=== PATIENT | female | born 1960 | race Caucasian/White ===

== ENCOUNTER 2018-05-25 18:30 | Emergency (ER) | payer MEDICAID, OTHER ==
[2018-05-25] MEDS ORDERED: IPRATROPIUM/ALBUTEROL 3 ML NEB INH STA (18:39)
--- NOTE | 2018-05-25 18:41 | ED Physician Documentation ---
PD HPI DYSPNEA - Stated complaint Stated Complaint: SOA/VOMITING - Chief complaint Chief Complaint: Resp - History obtained from History obtained from: Patient - History of Present Illness Timing - onset: Yesterday (She became sick yesterday with sneezing which quickly moved down to her chest with a cough productive of clear sputum and wheezing. She has no history of heart or lung disease. She does have central anterior chest pain especially with deep breathing. She is short of breath. She has no history of tobacco use. No pedal edema or calf pain or recent travel.) Review of Systems Ten Systems: 10 systems reviewed and negative Constitutional: denies: Fever, Chills Cardiac: reports: Chest pain / pressure. denies: Palpitations Respiratory: reports: Dyspnea, Cough GI: denies: Abdominal Pain : denies: Dysuria, Frequency PD PAST MEDICAL HISTORY - Present Medications Home Medications: Ambulatory Orders Medication Instructions Recorded Confirmed Albuterol Sulf [Ventolin Hfa 1 - 2 puffs INH Q4HR PRN #1 inhaler 05/25/18 Inhaler] Hydrocodone/Chlorphen P-Stirex 5 ml PO BID PRN #90 ml 05/25/18 [Hydrocodone-Chlorphen ER Susp] predniSONE [Deltasone] 60 mg PO DAILY 5 Days tablet 05/25/18 - Allergies Allergies/Adverse Reactions: Allergies Allergy/AdvReac Type Severity Reaction Status Date / Time No Known Drug Allergies Allergy Verified 05/25/18 18:39 PD ED PE NORMAL - Vitals Vital signs reviewed: Yes - General General: Alert and oriented X 3, Other (She is breathless and has a hoarse voice consistent with laryngitis) - HEENT HEENT: PERRL, EOMI, Pharynx benign - Neck Neck: Supple, no meningeal sign, No bony TTP - Cardiac Cardiac: RRR (But tachycardic). No: No murmur - Respiratory Respiratory: Other (Slightly labored breathing but speaking in full sentences. Tight and wheezy throughout.) - Abdomen Abdomen: Soft, Non tender - Back Back: No CVA TTP, No spinal TTP - Derm Derm: Normal color, Warm and dry - Extremities Extremities: No edema, No calf tenderness / cord - Neuro Neuro: Alert and oriented X 3, Normal speech Results - Vitals Vitals: Vital Signs - 24 hr 05/25/18 05/25/18 05/25/18 18:36 18:50 19:17 Temperature 36.9 C Heart Rate 125 H 119 H 91 Respiratory 22 14 20 Rate Blood Pressure 177/87 H 135/57 H O2 Saturation 97 99 Oxygen O2 Source Room air - EKG (time done) 1846 Rate: Rate (enter#) (107) Rhythm: Sinus tachycardia [place]: Normal Intervals: Normal [place] QRS: Normal Ischemia: Non specific changes Computer interpretation: Agree with computer - Labs Labs: Laboratory Tests 05/25/18 05/25/18 05/25/18 18:50 18:50 18:50 WBC 9.2 RBC 4.75 Hgb 14.2 Hct 41.8 MCV 88.0 MCH 30.0 MCHC 34.0 RDW 13.0 Plt Count 309 MPV 8.8 Neut # (Auto) 6.9 H Lymph # (Auto) 1.2 L [place] # (Auto) 0.9 Eos # (Auto) 0.2 Baso # (Auto) 0.1 Absolute Nucleated RBC 0.00 Nucleated RBC % 0.0 D-Dimer Sodium 139 Potassium 4.0 Chloride 104 Carbon Dioxide 25 Anion Gap 10.0 BUN 19 Creatinine 0.8 Estimated GFR (MDRD) 74 L Glucose 107 H Calcium 9.2 Total Bilirubin 0.4 AST 22 ALT 21 Alkaline Phosphatase 89 Troponin I < 0.04 Total Protein 7.1 Albumin 4.2 Globulin 2.9 Albumin/Globulin Ratio 1.4 Lipase 33 05/25/18 18:50 WBC RBC Hgb Hct MCV MCH MCHC RDW Plt Count MPV Neut # (Auto) Lymph # (Auto) [place] # (Auto) Eos # (Auto) Baso # (Auto) Absolute Nucleated RBC Nucleated RBC % D-Dimer < 200.0 L Sodium Potassium Chloride Carbon Dioxide Anion Gap BUN Creatinine Estimated GFR (MDRD) Glucose Calcium Total Bilirubin AST ALT Alkaline Phosphatase Troponin I Total Protein Albumin Globulin Albumin/Globulin Ratio Lipase - Rads (name of study) 2v chest Radiology: EMP read contemporaneously (normal) PD MEDICAL DECISION MAKING - ED course ED course: This is a 57-year-old woman who presents with wheezing and shortness of breath that followed an upper respiratory infection yesterday. She felt much better after breathing treatment here. Her EKG, chest x-ray, d-dimer, troponin and other diagnostics are reassuring for no serious etiology and she is treated for bronchitis with steroids, albuterol, and cough medicine. Departure - Departure Disposition: Home, Self Care Clinical Impression: Bronchitis Dyspnea Qualifiers: Dyspnea type: shortness of breath Qualified Code(s): R06.02 - Shortness of breath Condition: Good Record reviewed to determine appropriate education?: Yes Instructions: ED Bronchitis Asthmatic Prescriptions: Albuterol Sulf [Ventolin Hfa Inhaler] 1 - 2 puffs INH Q4HR PRN #1 inhaler PRN Reason: Shortness Of Air/Wheezing Hydrocodone/Chlorphen P-Stirex [Hydrocodone-Chlorphen ER Susp] 5 ml PO BID PRN #90 ml PRN Reason: Cough predniSONE [Deltasone] 60 mg PO DAILY 5 Days tablet Comments: Call your doctor to arrange a follow-up appointment, make the next available appointment. In the interim, return anytime if worse or if new symptoms develop. Your blood pressure was elevated today on check into the emergency department. This does not mean that you have hypertension, it is a common phenomenon to come to the emergency department and have elevated blood pressure. I recommend that you see your primary care physician within the week to have it rechecked when you are feeling better.
[2018-05-25 19:07] LABS: BASOPHILS # (AUTO) 0.1 10^3/uL (0.0-0.1); BASOPHILS % (AUTO) 0.7 %; EOSINOPHILS # (AUTO) 0.2 10^3/uL (0.0-0.7); HGB - HEMOGLOBIN 14.2 g/dL (12.0-16.0); LYMPHOCYTES # (AUTO) 1.2 10^3/uL (1.5-3.5); LYMPHOCYTES % (AUTO) 12.7 %; MEAN PLATELET VOLUME 8.8 fL (7.9-10.8); MONOCYTES # (AUTO) 0.9 10^3/uL (0.0-1.0); MONOCYTES % (AUTO) 9.5 %; NEUTROPHILS # (AUTO) 6.9 10^3/uL (1.5-6.6); NEUTROPHILS % (AUTO) 75.1 %; PLT - PLATELET COUNT 309 10^3/uL (130-450); RED BLOOD COUNT 4.75 10^6/uL (4.20-5.40); WHITE BLOOD COUNT 9.2 x10^3/uL (4.8-10.8)
[2018-05-25 19:24] LABS: ALBUMIN 4.2 g/dL (3.2-5.5); ALBUMIN/GLOBULIN RATIO 1.4 (1.0-2.2); BILIRUBIN,TOTAL 0.4 mg/dL (0.2-1.0); CALCIUM 9.2 mg/dL (8.5-10.3); CREATININE 0.8 mg/dL (0.4-1.0); TOTAL PROTEIN 7.1 g/dL (6.7-8.2)
--- NOTE | 2018-05-25 20:04 | XRAY Report ---
Reason: dyspnea cough Procedure Date: 05/25/2018 Accession Number: [id number] / [id number] Procedure: XR - Chest 2 View X-Ray CPT Code: 54121 FULL RESULT: EXAM: CHEST RADIOGRAPHY EXAM DATE: 05/25/2018 07:27 PM. CLINICAL HISTORY: Dyspnea and cough COMPARISON: None. TECHNIQUE: 2 views. FINDINGS: Lungs/Pleura: No focal opacities evident. No pleural effusion. No pneumothorax. Normal volumes. Mediastinum: Heart and mediastinal contours are unremarkable. Other: None. IMPRESSION: Negative for an acute cardiopulmonary abnormality. RADIA
[2018-05-25] MEDS ORDERED: predniSONE 20 MG TABLET PO STA (20:09)
[2018-05-25] MEDS ORDERED: ALBUTEROL NEB 2.5 MG/3 ML INH STA (20:09)
[2018-05-25] MEDS ORDERED: guaiFENesin/CODEINE 5 ML UDC PO STA (20:09)
[2018-05-25 20:21] VITALS: BP 144/76
== END 2018-05-25 20:35 | disposition home or self-care (01) ==
LOC: ED 18:30
DX: J40 Bronchitis, not specified as acute or chronic (principal); R03.0 Elevated blood-pressure reading, without diagnosis of hypertension
CPT/HCPCS: 36415; 71046; 80053; 83690; 84484; 85025; 85379; 93005; 94640; 99283; A9270; J7512

== ENCOUNTER 2018-09-17 08:24 | Emergency (ER) | payer OTHER ==
--- NOTE | 2018-09-17 09:41 | ED Physician Documentation ---
PD HPI LOWER EXT INJURY - Stated complaint Stated Complaint: BILAT FOOT PX AND SWELLING - Chief complaint Chief Complaint: Ext Problem - History obtained from History obtained from: Patient, Family - History of Present Illness PD HPI LOW EXT INJURY LOCATION: Right, Foot Type of injury: Other (wearing ill fitting shoes) Where injury occurred: Home, Work Timing - onset: How many weeks ago (1) Timing - duration: Weeks (1) Timing - details: Abrupt onset, Still present Improved by: Rest, Immobilization Worsened by: Moving, Palpating Associated symptoms: Swelling, Discolored Contributing factors: No: Anticoagulated Similar symptoms before: Has not had sx before Recently seen: Not recently seen - Additional information Additional information: Previously well 57-year-old female bought some new boots and wore them to work and she found that they were extremely uncomfortable. She wore them several times and when she took them off 5 days ago she noted there was some swelling to her right foot. She had pain up the calf on both sides. She did not have any swelling to the left foot. She is now been wearing her normal shoes for the past 5 days and despite this she has persistent swelling to the right foot with some redness over the dorsum of it and some tenderness to the foot. Review of Systems Constitutional: denies: Fever Eyes: denies: Decreased vision Ears: denies: Ear pain Nose: denies: Rhinorrhea / runny nose, Congestion Throat: denies: Sore throat Respiratory: denies: Cough GI: reports: Nausea. denies: Vomiting : denies: Dysuria, Frequency Skin: denies: Rash Musculoskeletal: reports: Extremity pain, Extremity swelling, Pain with weight bearing. 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 - Present Medications Home Medications: Ambulatory Orders Medication Instructions Recorded Confirmed Amox/Clav 875/125 [Augmentin] 1 each PO Q12H #20 tablet 09/17/18 Hydrocodone/Acetaminophen 1 - 2 each PO Q6H PRN #14 tablet 09/17/18 [Hydrocodon-Acetaminophen 5-325] - Allergies Allergies/Adverse Reactions: Allergies Allergy/AdvReac Type Severity Reaction Status Date / Time No Known Drug Allergies Allergy Verified 09/17/18 08:48 - Social History Does the pt smoke?: No Smoking Status: Never smoker Does the pt drink ETOH?: No Does the pt have substance abuse?: No Substance Use and Type: Marijuana - Immunizations Immunizations are current?: No - POLST Patient has POLST: No PD ED PE NORMAL - Vitals Vital signs reviewed: Yes (normal ) - General General: Alert and oriented X 3, No acute distress, Well developed/nourished - HEENT HEENT: Atraumatic, PERRL, EOMI - Neck Neck: Supple, no meningeal sign - Respiratory Respiratory: No respiratory distress - Derm Derm: Normal color, Warm and dry, No rash - Extremities Extremities: No deformity, Other (There is swelling and point tenderness to the right foot over the dorsum of the foot laterally is a portion that is swollen and erythematous with blanching skin. There is some erythema to the medial aspect of the foot as well over the ball of the foot and over the heel. There is minimal calf tenderness without palpable cord. The left foot is without swelling or tenderness.) - Neuro Neuro: Alert and oriented X 3, customer support analyst 2-12 intact, No motor deficit, No sensory deficit, Normal speech Eye Opening: Spontaneous Motor: Obeys Commands Verbal: Oriented GCS Score: 15 - Psych Psych: Normal mood, Normal affect Results - Vitals Vitals: Vital Signs - 24 hr 09/17/18 09/17/18 08:43 11:47 Temperature 36.3 C L Heart Rate 93 87 Respiratory 14 16 Rate Blood Pressure 122/57 L 142/88 H O2 Saturation 99 97 Oxygen O2 Source Room air - Rads (name of study) duplex right Radiology: Prelim report reviewed (Impression: No evidence for deep venous thrombosis.), EMP read indepedently, See rad report PD MEDICAL DECISION MAKING - ED course Complexity details: reviewed results, re-evaluated patient, considered differential, d/w patient, d/w family ED course: 57-year-old female who had been wearing some tight fitting shoes has some cellulitis to the right foot now. Duplex exam is negative for DVT. She is administered Rocephin 1 g IM and some Toradol. We will put her on some antibiotic and I have discussed with the patient antibiotic failure and reasons to return to the emergency department. Departure - Departure Disposition: 01 Home, Self Care Clinical Impression: Cellulitis Qualifiers: Site of cellulitis: extremity Site of cellulitis of extremity: lower extremity Laterality: right Qualified Code(s): L03.115 - Cellulitis of right lower limb Condition: Stable Instructions: ED Infec Skin Cellulitis Follow-Up: [facility] [Provider Group] Prescriptions: Amox/Clav 875/125 [Augmentin] 1 each PO Q12H #20 tablet Hydrocodone/Acetaminophen [Hydrocodon-Acetaminophen 5-325] 1 - 2 each PO Q6H PRN #14 tablet PRN Reason: pain Forms: Activity restrictions
[2018-09-17] MEDS ORDERED: KETOROLAC 60 MG/2 ML VIAL IM STA (10:18)
[2018-09-17] MEDS ORDERED: LIDOCAINE 1% 2 ML VIAL MC ONE (10:18)
[2018-09-17] MEDS ORDERED: cefTRIAXone 1 GM VIAL IM STA (10:18)
[2018-09-17 11:48] VITALS: BP 142/88
--- NOTE | 2018-09-17 11:49 | Ultrasound Report ---
Reason: R foot swelling calf pain Procedure Date: 09/17/2018 Accession Number: [id number] / [id number] Procedure: US - Duplex Ext Veins Right CPT Code: FULL RESULT: EXAM: RIGHT LOWER EXTREMITY VENOUS ULTRASOUND EXAM DATE: 09/17/2018 11:37 AM. CLINICAL HISTORY: R foot swelling calf pain. COMPARISON: None. TECHNIQUE: Real-time sonographic vascular imaging was performed by the printing bindery assistant through the lower extremity utilizing both color-flow and Doppler spectral analysis. Multiple education courses sales representative static images were saved for review. FINDINGS: Common Femoral Vein (CFV): Normal. CFV-GSV Junction: Normal. Profunda Femoral Vein (PFV): Normal. Femoral Vein (FV) Prox: Normal. Femoral Vein (FV) Mid: Normal. Femoral Vein (FV) Dist: Normal. Popliteal Vein: Normal. Posterior Tibial Veins: Normal. Peroneal Veins: Normal. Contralateral Side CFV: Normal. Other: None. IMPRESSION: No evidence for deep venous thrombosis. RADIA
== END 2018-09-17 12:22 | disposition home or self-care (01) ==
LOC: ED 08:24
DX: L03.115 Cellulitis of right lower limb (principal)
CPT/HCPCS: 96372; 99283

== ENCOUNTER 2018-10-05 19:55 | Emergency (ER) | payer OTHER ==
[2018-10-05] MEDS ORDERED: KETOROLAC 30 MG/ML VIAL IVP STA (20:30)
[2018-10-05 20:47] LABS: BASOPHILS # (AUTO) 0.1 10^3/uL (0.0-0.1); BASOPHILS % (AUTO) 0.9 %; EOSINOPHILS # (AUTO) 0.4 10^3/uL (0.0-0.7); HGB - HEMOGLOBIN 12.7 g/dL (12.0-16.0); LYMPHOCYTES # (AUTO) 1.1 10^3/uL (1.5-3.5); LYMPHOCYTES % (AUTO) 9.8 %; MEAN CORPUSCULAR HEMOGLOBIN 29.5 pg (27.0-31.0); MEAN CORPUSCULAR HGB CONC 34.2 g/dL (32.0-36.0); MEAN CORPUSCULAR VOLUME 86.1 fL (81.0-99.0); MEAN PLATELET VOLUME 7.6 fL (7.9-10.8); MONOCYTES # (AUTO) 0.6 10^3/uL (0.0-1.0); MONOCYTES % (AUTO) 5.5 %; NEUTROPHILS # (AUTO) 9.3 10^3/uL (1.5-6.6); NEUTROPHILS % (AUTO) 80.8 %; PLT - PLATELET COUNT 483 10^3/uL (130-450); RED BLOOD COUNT 4.31 10^6/uL (4.20-5.40); RED CELL DISTRIBUTION WIDTH 12.8 % (12.0-15.0); WHITE BLOOD COUNT 11.6 x10^3/uL (4.8-10.8)
[2018-10-05 20:49] LABS: CALCIUM 8.8 mg/dL (8.5-10.3); CREATININE 0.7 mg/dL (0.4-1.0)
[2018-10-05 21:04] LABS: BILIRUBIN,URINE NEGATIVE (NEGATIVE); GLUCOSE, URINE (UA) NEGATIVE (NEGATIVE); KETONES,URINE (UA) TRACE mg/dL (NEGATIVE); LEUKOCYTE ESTERASE, URINE MODERATE (NEGATIVE); NITRITE,URINE NEGATIVE (NEGATIVE); OCCULT BLOOD,URINE MODERATE (NEGATIVE); PROTEIN,URINE NEGATIVE (NEGATIVE); UROBILINOGEN,URINE 0.2 (NORMAL) E.U./dL (NORMAL)
[2018-10-05 21:05] LABS: CLARITY,URINE HAZY (CLEAR)
[2018-10-05 21:14] LABS: BACTERIA,URINE Rare /HPF (None Seen); SQUAMOUS EPITHELIAL CELL,UR MANY Squamous (<= Few)
[2018-10-05 21:18] LABS: RHEUMATOID FACTOR NEGATIVE (Negative)
[2018-10-05] MEDS ORDERED: methylPREDNISolone SUCCINATE 125 MG/2 ML VIAL IVP STA (22:05)
[2018-10-05 22:26] VITALS: BP 149/75
--- NOTE | 2018-10-05 22:46 | ED Physician Documentation ---
History of Present Illness - Stated complaint Stated Complaint: BODY SWELLING - Chief complaint Chief Complaint: General - History obtained from History obtained from: Patient, Family - History of Present Illness Timing: How many weeks ago (3) Pain level max: 8 Pain level now: 8 Severity Comments: moderate Quality: aching, throbbing in multiple joints Radiates to: no specific radiation Improved by: nothing Worsened by: movement Associated symptoms: swelling, redness. Denies fever. Denies chest pain, sob, nausea, vomiting, sore throat or urinary symptoms. Pt denies rash. - Treatment prior to arrival Treatment prior to arrival: Tried antibiotics 2 weeks ago and just finished them up - Augmentin was prescribed for possible cellulitis. - Additonal information Additional information: 57 y/o F was seen 2 weeks ago for swelling of her ankle and diagnosed with cellulitis. Started on antibiotics. Pt however now complains of pain and swelling spreading to multiple joints. She has swelling and redness of her L ankle, R ankle, left wrist, Bilateral elbows. She denies fever. Denies hx of travel, no recent insect bites or rashes. She denies recent viral or other illness, sore throat, urinary symptoms, vaginal discharge or bleeding. No family history of arthritis or autoimmune disease. Denies hx of IV drug use. Does occasionally use marijuana. Denies hx of chest pain, sob. Denies HIV or Hepatitis. Review of Systems Ten Systems: 10 systems reviewed and negative Constitutional: denies: Fever, Chills, Weight Loss, Sweats Cardiac: denies: Chest pain / pressure, Palpitations Respiratory: denies: Dyspnea, Cough GI: denies: Abdominal Pain, Nausea, Vomiting : denies: Dysuria, Frequency, Hesitancy, Hematuria, Discharge, Vaginal bleeding Skin: denies: Rash, Bite / sting Musculoskeletal: reports: Joint pain, Joint swelling, Pain with weight bearing. 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 - Present Medications Home Medications: Ambulatory Orders Medication Instructions Recorded Confirmed Amox/Clav 875/125 [Augmentin] 1 each PO Q12H #20 tablet 09/17/18 Hydrocodone/Acetaminophen 1 - 2 each PO Q6H PRN #14 tablet 09/17/18 [Hydrocodon-Acetaminophen 5-325] Hydrocodone/Acetaminophen 1 - 2 each PO Q6H PRN #14 tablet 10/05/18 [Hydrocodon-Acetaminophen 5-325] Ibuprofen [Motrin] 800 mg PO Q8H PRN #30 tablet 10/05/18 RX: predniSONE [Prednisone] 40 mg PO DAILY #10 tablet 10/05/18 - Allergies Allergies/Adverse Reactions: Allergies Allergy/AdvReac Type Severity Reaction Status Date / Time No Known Drug Allergies Allergy Verified 10/05/18 20:02 - Social History Does the pt smoke?: No Smoking Status: Never smoker Does the pt drink ETOH?: No Does the pt have substance abuse?: No - Immunizations Immunizations are current?: No - POLST Patient has POLST: No PD ED PE EXPANDED - General General: Alert, No acute distress, Well developed/nourished - HEENT HEENT: Atraumatic - Eyes Eyes: PERRL, Other (no conjunctival injection) - Neck Neck: Supple w/out meningeal sx. No: Stiff neck - Cardiac Cardiac: Regular Rate - Respiratory Respiratory: No: Distress, Labored - Abdomen Abdomen: Other (soft). No: Distended, Tender to palpation, Rebound, Guarding - Female Female : Other (deferred) - Derm Derm: Other (swelling and redness of R ankle, L ankle, Right elbow, L elbow and L wrist) - Extremities Extremities: Tenderness, Swelling, Other (redness of R ankle, L ankle, R elbow, L elbow, L wrist ) - Neuro Neuro: Alert and Oriented X 3, Normal motor, Normal Sensation, Normal gait - GCS Eye Opening: Spontaneous Motor: Obeys Commands Verbal: Oriented Total: 15 Results - Vitals Vitals: Vital Signs - 24 hr 10/05/18 10/05/18 10/05/18 19:57 20:26 22:26 Temperature 37.5 C Heart Rate 113 H 93 Respiratory 18 18 17 Rate Blood Pressure 165/64 H 149/75 H O2 Saturation 100 94 Oxygen O2 Source Room air - Labs Labs: Laboratory Tests 10/05/18 10/05/18 10/05/18 20:33 20:33 20:33 WBC 11.6 H RBC 4.31 Hgb 12.7 Hct 37.1 MCV 86.1 MCH 29.5 MCHC 34.2 RDW 12.8 Plt Count 483 H MPV 7.6 L Neut # (Auto) 9.3 H Lymph # (Auto) 1.1 L [place] # (Auto) 0.6 Eos # (Auto) 0.4 Baso # (Auto) 0.1 Absolute Nucleated RBC 0.00 Nucleated RBC % 0.0 ESR 25 Sodium 137 Potassium 3.6 Chloride 103 Carbon Dioxide 23 Anion Gap 11.0 BUN 15 Creatinine 0.7 Estimated GFR (MDRD) 87 L Glucose 148 H Calcium 8.8 Urine Color Urine Clarity Urine pH Ur Specific [place] Urine Protein Urine Glucose (UA) Urine Ketones Urine Occult Blood Urine Nitrite Urine Bilirubin Urine Urobilinogen Ur Leukocyte Esterase Urine RBC Urine WBC Ur Squamous Epith Cells Urine Bacteria Ur Microscopic Review Urine Culture Comments Rheumatoid Factor 10/05/18 10/05/18 20:33 20:56 WBC RBC Hgb Hct MCV MCH MCHC RDW Plt Count MPV Neut # (Auto) Lymph # (Auto) [place] # (Auto) Eos # (Auto) Baso # (Auto) Absolute Nucleated RBC Nucleated RBC % ESR Sodium Potassium Chloride Carbon Dioxide Anion Gap BUN Creatinine Estimated GFR (MDRD) Glucose Calcium Urine Color YELLOW Urine Clarity HAZY Urine pH 6.0 Ur Specific [place] 1.025 Urine Protein NEGATIVE Urine Glucose (UA) NEGATIVE Urine Ketones TRACE Urine Occult Blood MODERATE H Urine Nitrite NEGATIVE Urine Bilirubin NEGATIVE Urine Urobilinogen 0.2 (NORMAL) Ur Leukocyte Esterase MODERATE H Urine RBC 6-10 H Urine WBC 6-10 H Ur Squamous Epith Cells MANY Squamous H Urine Bacteria Rare Ur Microscopic Review INDICATED Urine Culture Comments NOT INDICATED Rheumatoid Factor NEGATIVE Negative rheumatoid factor, no obvious UTI PD MEDICAL DECISION MAKING - ED course Complexity details: reviewed results, re-evaluated patient, considered differential, d/w patient, d/w family ED course: DDx includes Lyme, viral arthritis, reactive arthritis, lupus, bacterial endocarditis, fibromyalgia, gout, rheumatoid arthritis, Hepatitis, HIV. 57 y/o F with signs and symptoms of polarthritis. Pt however well appearing, afebrile. Symptoms ongoing for 3 weeks. No obvious exposure to Lyme or other bacterial illness. No risk factors for endocarditis. Pt feels better here after toradol. Sent viral panel and hepatitis panel. Pt has appt for f/u with regular doctor in 3 weeks. Thus given short course of steroids for suspected inflammatory arthritis. Pt given return precautions. Departure - Departure Disposition: 01 Home, Self Care Clinical Impression: Polyarthritis Condition: Stable Record reviewed to determine appropriate education?: Yes Instructions: Arthritis Follow-Up: Radha Kraus MD [Physician No Access] - Prescriptions: Hydrocodone/Acetaminophen [Hydrocodon-Acetaminophen 5-325] 1 - 2 each PO Q6H PRN #14 tablet PRN Reason: pain Ibuprofen [Motrin] 800 mg PO Q8H PRN #30 tablet PRN Reason: PAIN &/OR FEVER RX: predniSONE [Prednisone] 40 mg PO DAILY #10 tablet Comments: Your examination and lab tests today were suggestive of a viral or inflammatory polarthritis. Your rheumatoid factor was negative for rheumatoid arthritis. This is unlikely to be Lyme disease because Lyme does not occur in [place] part [place] - the tick that carries the disease is not located here. Your hepatitis panel and other tests are still pending and you can call back the hospital for your results. You should follow up with a Jailer Chief however to further evaluate your symptoms. Take the steroids for the next 5 days then switch to ibuprofen for pain and to decrease the inflammatory process. Return to the ED if you have worsening symptoms or a fever. Forms: Activity restrictions Discharge Date/Time: 10/05/18 22:58
[2018-10-07 12:41] LABS: HEPATITIS A IGM NON-REACTIVE (NON-REACTIVE); HEPATITIS B CORE ANTIBODY IGM NON-REACTIVE (NON-REACTIVE); HEPATITIS B SURFACE ANTIGEN NON-REACTIVE (NON-REACTIVE); HEPATITIS C ANTIBODY NON-REACTIVE (NON-REACTIVE)
[2018-10-07 13:22] LABS: HIV AG/AB 4TH GEN NON-REACTIVE (NON-REACTIVE)
== END 2018-10-05 22:58 | disposition home or self-care (01) ==
LOC: ED 19:55
DX: M13.0 Polyarthritis, unspecified (principal)
CPT/HCPCS: 36415; 80048; 80074; 81001; 81003; 85025; 85651; 86038; 86430; 86617; 87086; 87389; 96374; 96375; 99283